=== PATIENT | female | born 1980 | race Caucasian/White ===

== ENCOUNTER 2016-07-22 08:49 | Observation (INO) | payer BC, MEDICAID ==
[2016-07-22 08:56] VITALS: BMI 23.1
[2016-07-22] MEDS ORDERED: Sodium Chloride 0.9% 1,000 ML IV ONE (09:16)
--- NOTE | 2016-07-22 09:19 | C.PDOC ---
History Of Present Illness 36-year-old female, presents to the emergency department accompanied by family, with complaints of right flank/right groin pain since yesterday. Pain is intermittent and sharp. Denies prior Hx of renal stone. LMP was on 07/01. Patient is s/p D&C at nine weeks one month ago, patient states she has been doing well until now. Associated symptoms include nausea and non-bilious/non-bloody vomiting. Denies UTI Sx. All other Hx limited due to clinical condition LIMITED DUE TO CLIN COND HX FROM FAMILY, PT NEW ONSET R FLANK, R GROIN PAIN SINCE YEST. INTERMIT SHARP. DENIES PRIOR HO RENAL STONE. LMP 07/01. S/P D&C @ 9 WKS 1 MO AGO, PS HAS BEEN DOING WELL UNTIL NOW. +NV. DENIES UTI SX ROS LIMITED EXAM MOD DIST NONTOXIC ABD+RLQ /PELVIC TEND SOFT NO R.G +R CVAT REMAINDER NEG Time Seen by Provider: 07/22/16 09:11 Chief Complaint (Nursing): Abdominal Pain History Per: Patient History/Exam Limitations: no limitations Past Medical History Reviewed: Historical Data, Nursing Documentation, Vital Signs Vital Signs: Last Vital Signs Temp 102.7 F H 07/22/16 13:30 Pulse 132 H 07/22/16 13:30 Resp 20 07/22/16 13:30 BP 129/88 07/22/16 13:30 Pulse Ox 100 07/22/16 13:58 - Medical History PMH: Crohn's Disease, HTN (boarderline as per patient) Family History: States: Unknown Family Hx - Social History Hx Tobacco Use: No Hx Alcohol Use: No Hx Substance Use: No - Immunization History Hx Tetanus Toxoid Vaccination: No Hx Influenza Vaccination: No Hx Pneumococcal Vaccination: No Review Of Systems Review Of Systems: ROS cannot be obtained secondary to pt's inabilty to answer questions. Gastrointestinal: Positive for: Nausea, Vomiting, Abdominal Pain Musculoskeletal: Positive for: Back Pain Physical Exam - Physical Exam Appears: Non-toxic, No Acute Distress Skin: Warm, Dry, No Rash Head: Atraumatic, Normacephalic Nose: Normal Oral Mucosa: Moist Lips: Normal Appearing Neck: Normal ROM Cardiovascular: Rhythm Regular Respiratory: Normal Breath Sounds, No Accessory Muscle Use Gastrointestinal/Abdominal: Tenderness (RLQ /PELVIC TEND SOFT), No Guarding, No Rebound Back: CVA Tenderness (RIGHT) Extremity: Normal ROM Neurological/Psych: Oriented x3, Normal Speech ED Course And Treatment - Laboratory Results Result Diagrams: 07/22/16 10:30 07/22/16 10:30 O2 Sat by Pulse Oximetry: 100 ED OBSERVATION Discharge: Yes Date of observation admission: 07/22/16 Time of observation admission: 09:00 - Observation admission statement Patient is being placed in observation because:: FLANK PAIN, ABD PAIN, NV - Goals of Observation Goals of observation are:: NEG ACUTE ABD, SX IMPROVE - Progress Note Progress Note: 07/22/16 11:58 MILD IMPROVE PAIN. VSS. CT REPORT REVIEWED. WILL DO TRANSVAG US. PT DOES NOT WISH ADDL PAIN MEDS @ THIS TIME 07/22/16 13:32 NEW ONSET FEVER, RECUR R FLANK PAIN. WILL LACTATE, CULTURE, ADDL MEDS. PENDING US REPORT 07/22/16 14:51 PS FEELS BETTER. OFFERED ADMISSION DUE TO PERSIST PAIN, NAUSEA. PREFERS DC HOME Disposition Counseled Patient/Family Regarding: Studies Performed, Diagnosis, Need For Followup, Rx Given - Disposition Disposition: HOME/ ROUTINE Disposition Time: 14:54 Condition: IMPROVED - POA Present On Arrival: None - Clinical Impression Clinical Impression: Fever, Flank pain, Abdominal pain - Scribe Statement The provider has reviewed the documentation as recorded by the Gabrielle Acevedo All medical record entries made by the Amandaibfarhad were at my direction and personally dictated by me. I have reviewed the chart and agree that the record accurately reflects my personal performance of the history, physical exam, medical decision making, and the department course for this patient. I have also personally directed, reviewed, and agree with the discharge instructions and disposition.
[2016-07-22] MEDS ORDERED: Morphine 4 MG/ML VIAL ONE ×2 (09:32→13:36)
[2016-07-22 10:35] LABS: BASO % 0.2 % (0.0-2.0); EOS % 0.1 % (0.0-4.0); HEMATOCRIT 37.9 % (34.0-47.0); LYMPH # 0.6 K/uL (1.0-4.3); LYMPH % 4.1 % (20.0-40.0); MEAN CELL VOLUME 83.1 fL (81.0-99.0); MEAN CORPUSCULAR HEMOGLOBIN 27.2 pg (27.0-31.0); MEAN CORPUSCULAR HGB CONC 32.7 g/dL (33.0-37.0); MEAN PLATELET VOLUME 8.9 fL (7.2-11.7); MONO # 0.6 K/uL (0.0-0.8); MONO % 4.3 % (0.0-10.0); PLATELET COUNT 368 K/uL (130-400); RED CELL DISTRIBUTION WIDTH 14.1 % (11.5-14.5)
[2016-07-22 10:44] LABS: CHLORIDE 100 mmol/L (98-107); POTASSIUM 3.5 mmol/L (3.6-5.2); SODIUM 141 mmol/L (132-148)
[2016-07-22 10:46] LABS: ALB/GLOB RATIO 1.3 (1.0-2.1); ALKALINE PHOSPHATASE 59 U/L (38-126); AST/SGOT 27 U/L (14-36); BILIRUBIN,TOTAL 1.5 mg/dL (0.2-1.3); CARBON DIOXIDE 18 mmol/L (22-30); GFR AFRICAN-AMERICAN > 60; TOTAL PROTEIN 8.5 g/dL (6.3-8.3)
[2016-07-22 10:47] LABS: BLOOD UREA NITROGEN 11 mg/dL (7-17); CALCIUM 9.9 mg/dl (8.6-10.4); GLUCOSE,RANDOM 104 mg/dL (65-105)
[2016-07-22 10:53] LABS: RBC URINE 2 /hpf (0-3); URINE BACTERIA RARE (<OCC); URINE BILIRUBIN NEGATIVE (NEGATIVE); URINE BLOOD NEGATIVE (NEGATIVE); URINE COLOR Yellow (YELLOW); URINE GLUCOSE (UA) NORMAL (Normal); URINE HYALINE CAST 0-2 /lpf (0-2); URINE KETONE 1+ mg/dL (NEGATIVE); URINE LEUKOCYTE ESTERASE TRACE Leu/uL (Negative); URINE PROTEIN 1+ mg/dL (NEGATIVE); URINE UROBILINOGEN NORMAL mg/dL (0.2-1.0); WBC URINE 12 /hpf (0-5)
[2016-07-22 10:58] LABS: ALT/SGPT 18 U/L (9-52)
[2016-07-22 11:23] LABS: LARGE PLATELETS PRESENT; NEUTROPHIL 88 % (50-75); TOTAL CELLS COUNTED 100
--- NOTE | 2016-07-22 11:43 | CT ---
PROCEDURE: CT Abdomen and Pelvis without Oral or IV contrast. HISTORY: R FLANK, R GROIN PAIN COMPARISON: None available TECHNIQUE: Contiguous axial images of the abdomen and pelvis. No oral or IV contrast administered. Coronal and Sagittal reformats generated and reviewed. Radiation dose: Total exam DLP = 399.60 mGy-cm. This CT exam was performed using one or more of the following dose reduction techniques: Automated exposure control, adjustment of the mA and/or kV according to patient size, and/or use of iterative reconstruction technique. FINDINGS: There is limited evaluation of the solid organs without the administration of IV contrast. LOWER THORAX: No visible consolidation, pleural effusion, or pneumothorax. LIVER: Unremarkable unenhanced appearance. GALLBLADDER AND BILE DUCTS: Unremarkable unenhanced appearance. PANCREAS: Unremarkable unenhanced appearance. SPLEEN: Unremarkable unenhanced appearance. ADRENALS: Unremarkable unenhanced appearance. KIDNEYS AND URETERS: Bilateral nonobstructing nephrolithiasis. No hydronephrosis. BLADDER: The urinary bladder appears unremarkable. REPRODUCTIVE: Uterus is present. APPENDIX: The appendix is not clearly identified. No secondary signs of acute appendicitis. BOWEL: The stomach is nondistended. Lack of oral contrast limits evaluation for bowel pathology. The bowel loops appear within normal limits of caliber without evidence of intestinal obstruction. Moderate to severe constipation. PERITONEUM: Small pelvic free fluid. No definite free air. LYMPH NODES: No bulky lymphadenopathy identified. VASCULATURE: No aortic aneurysm. BONES: No acute osseous abnormality is detected. OTHER FINDINGS: None. IMPRESSION: Nonobstructing bilateral nephrolithiasis. Moderate to severe constipation. Small pelvic free fluid.
--- NOTE | 2016-07-22 13:21 | US ---
HISTORY: r pelvic pain ro torsion COMPARISON: None available. TECHNIQUE: Real-time transabdominal pelvic ultrasound was performed. In addition a transvaginal pelvic ultrasound was necessary to better depict pelvic anatomy FINDINGS: UTERUS: Measures 9.8 x 5.5 x 6.5 cm. ENDOMETRIUM: Measures 1.3 cm in diameter. CERVIX: Small nabothian cysts. RIGHT OVARY: Measures 3.7 x 2.2 x 3.4 cm. Blood flow is demonstrated to the right ovary. 1.3 x 1.1 x 1.3 cm complex probable cyst. LEFT OVARY: Measures 4.1 x 1.7 x 3.2 cm. Blood flow is demonstrated. FREE FLUID: No significant free fluid noted. OTHER FINDINGS: None. IMPRESSION: No evidence of intrauterine gestational sac. If indeed the patient is based on serum beta HCG values, the sonographic findings represent either: Very early IUP; embryonic demise; ectopic gestation. Follow-up with serial quantitative serum beta HCG measurements and post OBGYN follow-up is mandatory, since ectopic gestation cannot be excluded based only on sonographic findings. Complex appearing 1.3 cm right ovarian cyst. Recommend 6 week ultrasound follow-up to assess for complete resolution.
[2016-07-22] MEDS ORDERED: Sodium Chloride 0.9% 1,000 ML ONE (13:36)
--- NOTE | 2016-07-22 14:03 | RAD ---
HISTORY: FEVER R ABD PAIN COMPARISON: None available TECHNIQUE: Chest, one view. FINDINGS: LUNGS: No focal consolidation. Please note that chest x-ray has limited sensitivity for the detection of pulmonary masses. PLEURA: No significant pleural effusion identified. No definite pneumothorax . CARDIOVASCULAR: The cardiomediastinal silhouette appears within normal limits of size. OSSEOUS STRUCTURES: No acute osseous abnormality identified. VISUALIZED UPPER ABDOMEN: Unremarkable. OTHER FINDINGS: None. IMPRESSION: No focal consolidation, significant pleural effusion, or definite pneumothorax identified.
[2016-07-22 14:23] LABS: VENOUS BLOOD GAS PCO2 34 mmHg (40-60)
[2016-07-22] MEDS ORDERED: cefTRIAXone IV 1 gm in Dextros 50 ML IV STA (14:51)
[2016-07-22] MEDS ORDERED: cefTRIAXone IV 1 gm in Dextros 50 ML IVPB ONE (14:55)
[2016-07-22 15:28] VITALS: BP 98/59; PULSE 102; RESP 18; TEMP 100.4; O2SAT 98
== END 2016-07-22 14:54 | disposition home or self-care (01) ==
LOC: C.ER 08:49 → C.9OBSV 09:00
PROVIDERS: ADMIT Emergency Medicine; ATTEND Emergency Medicine
DX: R11.2 Nausea with vomiting, unspecified (principal); K50.90 Crohn's disease, unspecified, without complications; I10 Essential (primary) hypertension
CPT/HCPCS: 36415; 71010; 74176; 76830; 76856; 80053; 81001; 82803; 83690; 84703; 85025; 87040; 87086; 96360; 96374; 99285; G0378; J0696; J1885; J2270; J2405; J7040

== ENCOUNTER 2016-07-24 14:25 | Inpatient (IN) | payer BC, MEDICAID ==
[2016-07-24 14:25] VITALS: BMI 23.1
[2016-07-24] MEDS ORDERED: cefTRIAXone IV 1 gm in Dextros 50 ML IV ONE (15:23)
[2016-07-24] MEDS ORDERED: cefTRIAXone IV 1 gm in Dextros 50 ML IVPB ONE (15:28)
[2016-07-24] MEDS ORDERED: Sodium Chloride 0.9% 1,000 ML IV ONE (15:50)
--- NOTE | 2016-07-24 15:59 | C.PDOC ---
History Of Present Illness 36 y/o female presents to the ED for evaluation of right sided flank pain that radiates to her right abdominal x 4 days. Patient states she was evaluated in ED on 07/22 and was diagnosed with kidney stones. Patient was also given Rx for Levaquin because she had a mild UTI at the time. Since her visit, patient states she has been experiencing fever, nausea, and persistent pain. Patient was seen by Dr. Marilia Rivera, who referred her to the ED for further evaluation. Patient denies vomiting, cough, sore throat, runny nose, vaginal bleeding/discharge. Time Seen by Provider: 07/24/16 15:11 Chief Complaint (Nursing): Female Genitourinary History Per: Patient History/Exam Limitations: no limitations Onset/Duration Of Symptoms: Days Current Symptoms Are (Timing): Still Present Severity: Moderate Quality Of Discomfort: "Pain" Associated Symptoms: denies: Vomiting, Other (vaginal discharge/bleeding ) Abnormal Vaginal Bleeding: No Past Medical History Reviewed: Historical Data, Nursing Documentation, Vital Signs Vital Signs: Last Vital Signs Temp 98.1 F 07/26/16 07:00 Pulse 72 07/26/16 07:00 Resp 18 07/26/16 07:00 BP 128/81 07/26/16 07:00 Pulse Ox 99 07/26/16 14:48 - Medical History PMH: Crohn's Disease, HTN Surgical History: No Surg Hx Family History: States: No Known Family Hx - Social History Hx Tobacco Use: No Hx Alcohol Use: No Hx Substance Use: No - Immunization History Hx Tetanus Toxoid Vaccination: No Hx Influenza Vaccination: No Hx Pneumococcal Vaccination: No Review Of Systems Except As Marked, All Systems Reviewed And Found Negative. Constitutional: Positive for: Fever, Chills Cardiovascular: Negative for: Chest Pain, Palpitations Respiratory: Negative for: Cough, Shortness of Breath Gastrointestinal: Positive for: Nausea, Abdominal Pain (right ). Negative for: Vomiting, Diarrhea Genitourinary: Negative for: Vaginal Discharge, Vaginal Bleeding Musculoskeletal: Positive for: Other (+right flank pain ) Physical Exam - Physical Exam Appears: Well, Non-toxic, Other (uncomfortable ) Skin: Normal Color, Warm, Dry, Other (warm to touch ) Head: Normacephalic Eye(s): bilateral: Normal Inspection Oral Mucosa: Moist Neck: Supple Cardiovascular: Rhythm Regular (tachycardic ), No Murmur Respiratory: Normal Breath Sounds, No Rales, No Rhonchi, No Wheezing Gastrointestinal/Abdominal: Bowel Sounds, Soft, Tenderness (TTP at right periumbilical region and right lower quadrant), No Distention, No Guarding, No Rebound Back: CVA Tenderness (right-sided ), No Vertebral Tenderness, No Paraspinal Tenderness Extremity: Normal ROM Neurological/Psych: Oriented x3 Gait: Steady ED Course And Treatment - Laboratory Results Result Diagrams: 07/26/16 07:26 07/26/16 07:26 O2 Sat by Pulse Oximetry: 99 (on RA) Pulse Ox Interpretation: Normal - Other Rad transvaginal US 07/12/16 X-Ray: Viewed By Me, Read By Radiologist Interpretation: Accession No. : [id number]. Patient Name / ID : MIL TERESA / [id number]. Exam Date : 07/22/2016 12:40:01 ( Approved ). Study Comment : Sex / Age : F / 36Y. Creator : Yomaira Claudio MD. Dictator : Yomaira Claudio MD. Electromagnet Crane Operator : Electrical Assistant : Yomaira Claudio MD. Approver2 : Report Date : 07/22/2016 13:20:25. My Comment : . HISTORY: r pelvic pain ro torsion. COMPARISON: None available. TECHNIQUE: Real-time transabdominal pelvic ultrasound was performed. In addition a transvaginal pelvic ultrasound was necessary to better depict pelvic anatomy. FINDINGS: UTERUS: Measures 9.8 x 5.5 x 6.5 cm. ENDOMETRIUM: Measures 1.3 cm in diameter. CERVIX: Small nabothian cysts. RIGHT OVARY: Measures 3.7 x 2.2 x 3.4 cm. Blood flow is demonstrated to the right ovary. 1.3 x 1.1 x 1.3 cm complex probable cyst. LEFT OVARY: Measures 4.1 x 1.7 x 3.2 cm. Blood flow is demonstrated. FREE FLUID: No significant free fluid noted. OTHER FINDINGS: None. IMPRESSION: No evidence of intrauterine gestational sac. If indeed the patient is based on serum beta HCG values, the sonographic findings represent either: Very early IUP; embryonic demise; ectopic gestation. Follow-up with serial quantitative serum beta HCG measurements and post OBGYN follow-up is mandatory, since ectopic gestation cannot be excluded based only on sonographic findings. Complex appearing 1.3 cm right ovarian cyst. Recommend 6 week ultrasound follow-up to assess for complete resolution. - CT Scan/US CT ABD/PELVIS 07/22/16 Other Rad Studies (CT/US): Read By Radiologist, Radiology Report Reviewed CT/US Interpretation: Accession No. : [id number]. Patient Name / ID : MIL TERESA / [id number]. Exam Date : 07/22/2016 11:13:45 ( Approved ). Study Comment : Sex / Age : F / 36Y. Creator : Yomaira Claudio MD. Dictator : Yomaira Claudio MD. Electromagnet Crane Operator : Electrical Assistant : Yomaira Claudio MD. Approver2 : Report Date : 07/22/2016 11:42:07. My Comment : . PROCEDURE: CT Abdomen and Pelvis without Oral or IV contrast. HISTORY: R FLANK, R GROIN PAIN. COMPARISON: None available. TECHNIQUE: Contiguous axial images of the abdomen and pelvis. No oral or IV contrast administered. Coronal and Sagittal reformats generated and reviewed. Radiation dose: Total exam DLP = 399.60 mGy-cm. This CT exam was performed using one or more of the following dose reduction techniques: Automated exposure control, adjustment of the mA and/or kV according to patient size, and/or use of iterative reconstruction technique. FINDINGS: There is limited evaluation of the solid organs without the administration of IV contrast. LOWER THORAX: No visible consolidation, pleural effusion, or pneumothorax. LIVER: Unremarkable unenhanced appearance. GALLBLADDER AND BILE DUCTS: Unremarkable unenhanced appearance. PANCREAS: Unremarkable unenhanced appearance. SPLEEN: Unremarkable unenhanced appearance. ADRENALS: Unremarkable unenhanced appearance. KIDNEYS AND URETERS: Bilateral nonobstructing nephrolithiasis. No hydronephrosis. BLADDER: The urinary bladder appears unremarkable. REPRODUCTIVE: Uterus is present. APPENDIX: The appendix is not clearly identified. No secondary signs of acute appendicitis. BOWEL: The stomach is nondistended. Lack of oral contrast limits evaluation for bowel pathology. The bowel loops appear within normal limits of caliber without evidence of intestinal obstruction. Moderate to severe constipation. PERITONEUM: Small pelvic free fluid. No definite free air. LYMPH NODES: No bulky lymphadenopathy identified. VASCULATURE: No aortic aneurysm. BONES: No acute osseous abnormality is detected. OTHER FINDINGS: None. IMPRESSION: Nonobstructing bilateral nephrolithiasis. Moderate to severe constipation. Small pelvic free fluid. Progress Note: Blood work, UA, Ucx ordered. Patient given IV NS bolus, IV toradol and IV Rocephin. Prior CT and US reviewed (from 07/22) & added to chart. - Physician Consult Information Physician Contacted: Miko Baeza Outcome Of Conversation: Discussed patient with Dr. Eaton (covers for Caitlyn), agrees with admission for kidney stones, pyelonephritis. Dr. Kaylen Rivera is urology hospice consultant. Disposition - Disposition Disposition: HOME/ ROUTINE Disposition Time: 17:28 Condition: STABLE - Clinical Impression Clinical Impression: Acute urinary tract infection, Pyelonephritis, Urolithiasis - Scribe Statement The provider has reviewed the documentation as recorded by the Scribe (Gwen Forde) Provider Attestation: All medical record entries made by the Scribe were at my direction and personally dictated by me. I have reviewed the chart and agree that the record accurately reflects my personal performance of the history, physical exam, medical decision making, and the department course for this patient. I have also personally directed, reviewed, and agree with the discharge instructions and disposition. Decision To Admit - Pt Status Changed To: Hospital Disposition Of: Inpatient - Admit Certification Admit to Inpatient:: After my assessment, the patient will require hospitalization for at least two midnights. This is because of the severity of symptoms shown, intensity of services needed, and/or the medical risk in this patient being treated as an outpatient. - InPatient: Physician Admission Certification: I certify that this patient requires 2 or more midnights of care for the following reason:: see notes - . Bed Request Type: Regular Admitting Physician: Miko Baeza Patient Diagnosis: Acute urinary tract infection, Pyelonephritis, Urolithiasis
[2016-07-24 16:03] LABS: VENOUS BLOOD GAS BASE EXCESS 1.3 mmol/L (0.0-2.0); VENOUS BLOOD GAS PCO2 36 mmHg (40-60); VENOUS BLOOD PH 7.45 (7.32-7.43)
[2016-07-24 16:14] LABS: BASO % 0.3 % (0.0-2.0); EOS % 0.7 % (0.0-4.0); HEMATOCRIT 32.1 % (34.0-47.0); LYMPH # 1.1 K/uL (1.0-4.3); LYMPH % 15.9 % (20.0-40.0); MEAN CELL VOLUME 82.5 fL (81.0-99.0); MEAN CORPUSCULAR HGB CONC 32.7 g/dL (33.0-37.0); MEAN PLATELET VOLUME 8.5 fL (7.2-11.7); MONO # 0.8 K/uL (0.0-0.8); MONO % 11.2 % (0.0-10.0); RED CELL DISTRIBUTION WIDTH 14.1 % (11.5-14.5); WHITE BLOOD COUNT 7.1 K/uL (4.8-10.8)
[2016-07-24 16:21] LABS: CHLORIDE 101 mmol/L (98-107); POTASSIUM 3.2 mmol/L (3.6-5.2); SODIUM 138 mmol/L (132-148)
[2016-07-24 16:23] LABS: GFR AFRICAN-AMERICAN > 60
[2016-07-24 16:24] LABS: ALB/GLOB RATIO 1.1 (1.0-2.1); ALKALINE PHOSPHATASE 54 U/L (38-126); ALT/SGPT 22 U/L (9-52); AST/SGOT 31 U/L (14-36); BILIRUBIN,TOTAL 0.8 mg/dL (0.2-1.3); BLOOD UREA NITROGEN 8 mg/dL (7-17); CARBON DIOXIDE 24 mmol/L (22-30); GLUCOSE,RANDOM 87 mg/dL (65-105); TOTAL PROTEIN 7.6 g/dL (6.3-8.3)
[2016-07-24 16:25] LABS: CALCIUM 8.5 mg/dl (8.6-10.4)
[2016-07-24 16:30] LABS: RBC URINE 4 /hpf (0-3); URINE BACTERIA RARE (<OCC); URINE BILIRUBIN NEGATIVE (NEGATIVE); URINE BLOOD NEGATIVE (NEGATIVE); URINE COLOR Yellow (YELLOW); URINE GLUCOSE (UA) NORMAL (Normal); URINE KETONE NEGATIVE (NEGATIVE); URINE LEUKOCYTE ESTERASE NEG Leu/uL (Negative); URINE PROTEIN NEGATIVE (NEGATIVE); URINE UROBILINOGEN NORMAL mg/dL (0.2-1.0); WBC URINE 11 /hpf (0-5)
[2016-07-24] MEDS ORDERED: Potassium Chloride 20 mEq ER Tab PO STA (16:34)
[2016-07-24] MEDS ORDERED: Potassium Chloride 20 mEq ER Tab PO ONE (17:07)
[2016-07-24] MEDS ORDERED: Sodium Chloride 0.9% 1,000 ML ONE (17:41)
[2016-07-24] MEDS: Piperacill/Tazo 3.375gm in Dex 3.375 GM/50 ML BAG IVPB SCH (21:49)
[2016-07-24] MEDS: Oxycodone/Acetaminophen 5/325 mg Tab PO PRN (21:58)
--- NOTE | 2016-07-25 01:10 | CP.PCM.CON ---
History of Present Illness - History of Present Illness History of Present Illness: INFECTIOUS DISEASE CONSULTATION IVIS PEACOCK MD, FACP 3T 369-A 07/24/2016 8-9PM CHART REVIEWED PT EXAMINED CASE DISCUSSED PT SEEN AND INITIAL EMPIRIC ANTIMICROBIAL TREATMENT INITIATED SECONDARY TO HER RIGHT FLANK PAIN, STONES AND TEMPERATURE 102 PLUS! The patient, a 36 y/o female, presents to the ED for evaluation of right flank pain that radiates to her right abdominal region which began around 4-5 days ago. Patient states she was evaluated in ED on 07/22 and was diagnosed with kidney stones. Patient was also given Rx for Levaquin because she had a mild UTI at the time. Since her visit, patient states she has been experiencing fever, nausea, and persistent pain. Patient was seen by Dr. Marilia Rivera, who referred her to the ED for further evaluation. Patient denies vomiting, cough, sore throat, runny nose, vaginal bleeding/discharge. Time Seen by Provider: 07/24/16 Chief Complaint (Nursing): RIGHT FLANK PAIN AND TEMPERATURE OF OVER 102 DESPITE PO LEVAQUIN! History Per: Patient History/Exam Limitations: no limitations Onset/Duration Of Symptoms: Days Current Symptoms Are (Timing): Still Present Quality Of Discomfort: "Pain" Associated Symptoms: denies: Vomiting, Other (vaginal discharge/bleeding ) Additional History Per: Patient Abnormal Vaginal Bleeding: No Past Medical History Reviewed: Historical Data, Nursing Documentation, Vital Signs Vital Signs: Last Vital Signs Temp 98.7 F 07/24/16 17:19 Pulse 79 07/24/16 17:19 Resp 18 07/24/16 17:19 BP 98/64 L 07/24/16 17:19 Pulse Ox 98 07/24/16 17:19 - Medical History PMH: Crohn's Disease, HTN ANXIETY Surgical History: No Surg Hx Family History: States: Unknown Family Hx - Social History Hx Tobacco Use: No Hx Alcohol Use: No Hx Substance Use: No - Immunization History Hx Tetanus Toxoid Vaccination: No Hx Influenza Vaccination: No Hx Pneumococcal Vaccination: No Review Of Systems Except As Marked, All Systems Reviewed And Found Negative. Gastrointestinal: Positive for: Nausea, Abdominal Pain (right ) Musculoskeletal: Positive for: Other (+right flank pain ) Physical Exam - Physical Exam Appears: Non-toxic, No Acute Distress, Other (uncomfortable ) Skin: Normal Color, Warm, Dry, Other (warm to touch ) Head: Atraumatic, Normacephalic Eye(s): bilateral: Normal Inspection Oral Mucosa: Moist Neck: Supple Chest: Symmetrical, No Deformity, No Tenderness Cardiovascular: Rhythm Regular, No Murmur, Other (+tachycardia ) Respiratory: Normal Breath Sounds, No Rales, No Rhonchi, No Wheezing Gastrointestinal/Abdominal: Tenderness (to right periumbilical region and right lower quadrant on palpation ), No Guarding, No Rebound Back: CVA Tenderness (right-sided ), No Vertebral Tenderness, No Paraspinal Tenderness Extremity: Normal ROM, Capillary Refill (less than 2 seconds ) Neurological/Psych: Oriented x3, Normal Speech, Normal Cognition Gait: Steady ED Course And Treatment - Laboratory Results Result Diagrams: 07/24/16 15:58 07/24/16 15:58 O2 Sat by Pulse Oximetry: 99 (on RA) Pulse Ox Interpretation: Normal - Other Rad transvaginal US 07/12/16 X-Ray: Viewed By Me, Read By Radiologist Interpretation: Accession No. : [id number]. Patient Name / ID : MIL TERESA / [id number]. Exam Date : 07/22/2016 12:40:01 ( Approved ). Study Comment : Sex / Age : F / 36Y. Creator : Yomaira Claudio MD. Dictator : Yomaira Claudio MD. Project Structural Engineer : Solar Sales Rep : Yomaira Claudio MD. Approver2 : Report Date : 07/22/2016 13:20:25. My Comment : . HISTORY: r pelvic pain ro torsion. COMPARISON: None available. TECHNIQUE: Real-time transabdominal pelvic ultrasound was performed. In addition a transvaginal pelvic ultrasound was necessary to better depict pelvic anatomy. FINDINGS: UTERUS: Measures 9.8 x 5.5 x 6.5 cm. ENDOMETRIUM: Measures 1.3 cm in diameter. CERVIX: Small nabothian cysts. RIGHT OVARY: Measures 3.7 x 2.2 x 3.4 cm. Blood flow is demonstrated to the right ovary. 1.3 x 1.1 x 1.3 cm complex probable cyst. LEFT OVARY: Measures 4.1 x 1.7 x 3.2 cm. Blood flow is demonstrated. FREE FLUID: No significant free fluid noted. OTHER FINDINGS: None. IMPRESSION: No evidence of intrauterine gestational sac. If indeed the patient is based on serum beta HCG values, the sonographic findings represent either: Very early IUP; embryonic demise; ectopic gestation. Follow-up with serial quantitative serum beta HCG measurements and post OBGYN follow-up is mandatory, since ectopic gestation cannot be excluded based only on sonographic findings. Complex appearing 1.3 cm right ovarian cyst. Recommend 6 week ultrasound follow-up to assess for complete resolution. - CT Scan/US CT ABD/PELVIS 07/22/16 Other Rad Studies (CT/US): Read By Radiologist, Radiology Report Reviewed CT/US Interpretation: Accession No. : [id number]. Patient Name / ID : MIL TERESA / [id number]. Exam Date : 07/22/2016 11:13:45 ( Approved ). Study Comment : Sex / Age : F / 36Y. Creator : Yomaira Claudio MD. Dictator : Yomaira Claudio MD. Project Structural Engineer : Solar Sales Rep : Yomaira Claudio MD. Approver2 : Report Date : 07/22/2016 11:42:07. My Comment : . PROCEDURE: CT Abdomen and Pelvis without Oral or IV contrast. HISTORY: R FLANK, R GROIN PAIN. COMPARISON: None available. TECHNIQUE: Contiguous axial images of the abdomen and pelvis. No oral or IV contrast administered. Coronal and Sagittal reformats generated and reviewed. Radiation dose: Total exam DLP = 399.60 mGy-cm. This CT exam was performed using one or more of the following dose reduction techniques: Automated exposure control, adjustment of the mA and/or kV according to patient size, and/or use of iterative reconstruction technique. FINDINGS: There is limited evaluation of the solid organs without the administration of IV contrast. LOWER THORAX: No visible consolidation, pleural effusion, or pneumothorax. LIVER: Unremarkable unenhanced appearance. GALLBLADDER AND BILE DUCTS: Unremarkable unenhanced appearance. PANCREAS: Unremarkable unenhanced appearance. SPLEEN: Unremarkable unenhanced appearance. ADRENALS: Unremarkable unenhanced appearance. KIDNEYS AND URETERS: Bilateral nonobstructing nephrolithiasis. No hydronephrosis. BLADDER: The urinary bladder appears unremarkable. REPRODUCTIVE: Uterus is present. APPENDIX: The appendix is not clearly identified. No secondary signs of acute appendicitis. BOWEL: The stomach is nondistended. Lack of oral contrast limits evaluation for bowel pathology. The bowel loops appear within normal limits of caliber without evidence of intestinal obstruction. Moderate to severe constipation. PERITONEUM: Small pelvic free fluid. No definite free air. LYMPH NODES: No bulky lymphadenopathy identified. VASCULATURE: No aortic aneurysm. BONES: No acute osseous abnormality is detected. OTHER FINDINGS: None. IMPRESSION: Nonobstructing bilateral nephrolithiasis. Moderate to severe constipation. Small pelvic free fluid. Progress Note: Blood work, UA, Ucx ordered. Patient given IV Ns bolus, IV toradol and IV rocpehin. 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 START ZOSYN IV 3.375 GM Q 6 HOURS REPLACE HER POTASSIUM. CHECK HER BLOOD CULTURES AND URINE C/S, OF NOTE THE PREVIOUS PO AND IV AB MAY INHIBIT ANY GROWTH IN C/S. PLEASE NOTIFY DR MARILIA RIVERA WHO DIRECTED THE PATIENT ACCORDINGLY TO THE [facility]. IVIS PEACOCK MD, FACP CALL ME FOR ANY SIGNIFICANT MEDICAL/INFECTIOUS DISEASE ISSUES. Past Patient History - Infectious Disease Hx of Infectious Diseases: None - Past Medical History & Family History Past Medical History?: Yes - Past Social History Smoking Status: Never Smoked - CARDIAC Hx Hypertension: Yes - MUSCULOSKELETAL/RHEUMATOLOGICAL Hx Falls: No - GASTROINTESTINAL Hx Crohn's Disease: Yes - PSYCHIATRIC Hx Depression: Yes Hx Substance Use: No - SURGICAL HISTORY Other/Comment: colonoscopy. laproscopic endometrial cyst removal - ANESTHESIA Hx Anesthesia: Yes Hx Anesthesia Reactions: No Meds Allergies/Adverse Reactions: Allergies Allergy/AdvReac Type Severity Reaction Status Date / Time seafood Allergy Intermediate RASH Uncoded 07/24/16 14:40 - Medications Medications: Current Medications Acetaminophen (Tylenol 325mg Tab) 650 mg PO Q6 PRN PRN Reason: Temperature Heparin Sodium (Porcine) (Heparin) 5,000 units SC Q8 [facility] Last Admin: 07/24/16 21:52 Dose: 5,000 units Piperacillin Sod/Tazobactam Sod (Zosyn 3.375 Gm Iv Premix) 3.375 gm in 50 mls @ 100 mls/hr IVPB Q6H [facility] Last Admin: 07/24/16 21:49 Dose: 100 mls/hr Ondansetron HCl (Zofran Inj) 4 mg IVP Q6 PRN PRN Reason: Nausea/Vomiting Oxycodone/Acetaminophen (Percocet 5/325 Mg Tab) 1 tab PO QID PRN PRN Reason: Pain Stop: 07/27/16 20:47 Last Admin: 07/24/16 21:58 Dose: 1 tab Pneumococcal Polyvalent Vaccine (Pneumovax 23 Vaccine) 0.5 ml IM .ONCE ONE Stop: 07/26/16 10:01 Results - Vital Signs Recent Vital Signs: Last Vital Signs Temp 98.3 F 07/24/16 18:39 Pulse 80 07/24/16 18:39 Resp 20 07/24/16 18:39 BP 104/72 07/24/16 18:39 Pulse Ox 100 07/24/16 18:39 - Labs Result Diagrams: 07/25/16 06:56 07/25/16 06:56
[2016-07-25] MEDS: Piperacill/Tazo 3.375gm in Dex 3.375 GM/50 ML BAG IVPB SCH ×4 (03:00→20:46)
[2016-07-25] MEDS: Oxycodone/Acetaminophen 5/325 mg Tab PO PRN (06:53)
[2016-07-25 07:03] LABS: BASO % 0.6 % (0.0-2.0); EOS # 0.1 K/uL (0.0-0.7); EOS % 1.9 % (0.0-4.0); HEMATOCRIT 28.7 % (34.0-47.0); LYMPH # 1.6 K/uL (1.0-4.3); LYMPH % 28.8 % (20.0-40.0); MEAN CELL VOLUME 82.1 fL (81.0-99.0); MEAN CORPUSCULAR HEMOGLOBIN 27.5 pg (27.0-31.0); MEAN CORPUSCULAR HGB CONC 33.4 g/dL (33.0-37.0); MEAN PLATELET VOLUME 8.2 fL (7.2-11.7); MONO # 0.6 K/uL (0.0-0.8); MONO % 10.8 % (0.0-10.0); RED CELL DISTRIBUTION WIDTH 13.8 % (11.5-14.5); WHITE BLOOD COUNT 5.5 K/uL (4.8-10.8)
[2016-07-25 07:17] LABS: CHLORIDE 106 mmol/L (98-107); SODIUM 139 mmol/L (132-148)
[2016-07-25 07:18] LABS: POTASSIUM 3.8 mmol/L (3.6-5.2)
[2016-07-25 07:19] LABS: CHLORIDE 105 mmol/L (98-107)
[2016-07-25 07:20] LABS: BLOOD UREA NITROGEN 7 mg/dL (7-17); CARBON DIOXIDE 21 mmol/L (22-30); GFR AFRICAN-AMERICAN > 60; POTASSIUM 3.7 mmol/L (3.6-5.2); SODIUM 139 mmol/L (132-148)
[2016-07-25 07:21] LABS: CALCIUM 8.1 mg/dl (8.6-10.4); GLUCOSE,RANDOM 86 mg/dL (65-105)
[2016-07-25 07:22] LABS: AST/SGOT 28 U/L (14-36); BILIRUBIN,TOTAL 0.6 mg/dL (0.2-1.3); BLOOD UREA NITROGEN 6 mg/dL (7-17); CARBON DIOXIDE 21 mmol/L (22-30); GFR AFRICAN-AMERICAN > 60; TOTAL PROTEIN 6.8 g/dL (6.3-8.3)
[2016-07-25 07:23] LABS: ALKALINE PHOSPHATASE 50 U/L (38-126); ALT/SGPT 25 U/L (9-52); CALCIUM 7.5 mg/dl (8.6-10.4); GLUCOSE,RANDOM 87 mg/dL (65-105)
--- NOTE | 2016-07-25 09:20 | RAD ---
HISTORY: flank pain/kidney stone COMPARISON: CT abdomen and pelvis without p.o. or IV contrast 07/22/2016 FINDINGS: BOWEL: Transverse colon, right colon and rectosigmoid colon stool retention is present. Gas within large and small bowel loops in the left upper outer quadrant are noted. No bowel obstruction suggested BONES: Normal. OTHER FINDINGS: An approximately 4 mm calcification in the right upper quadrant is present and consistent with the largest calculus, nonobstructing, on the CT in the right renal mid to upper pole. Much smaller 1 to 2 mm calcifications are noted in the left upper outer quadrant probably relating to the much more subtle nonobstructing left renal calcifications present on that same CT. . The bilateral hemipelvic calcifications are phleboliths . No gross ureteral cord calcifications are suggested IMPRESSION: Bilateral renal calcifications as detailed above Stool retention
[2016-07-25] MEDS: Potassium Chloride 20 mEq ER Tab PO SCH (09:33)
--- NOTE | 2016-07-25 12:01 | CP.PCM.CON ---
Past Patient History - Infectious Disease Hx of Infectious Diseases: None - Past Medical History & Family History Past Medical History?: Yes - Past Social History Smoking Status: Never Smoked - CARDIAC Hx Hypertension: Yes - MUSCULOSKELETAL/RHEUMATOLOGICAL Hx Falls: No - GASTROINTESTINAL Hx Crohn's Disease: Yes - PSYCHIATRIC Hx Depression: Yes Hx Substance Use: No - SURGICAL HISTORY Other/Comment: colonoscopy. laproscopic endometrial cyst removal - ANESTHESIA Hx Anesthesia: Yes Hx Anesthesia Reactions: No Meds Allergies/Adverse Reactions: Allergies Allergy/AdvReac Type Severity Reaction Status Date / Time seafood Allergy Intermediate RASH Uncoded 07/24/16 14:40 - Medications Medications: Current Medications Acetaminophen (Tylenol 325mg Tab) 650 mg PO Q6 PRN PRN Reason: Temperature Heparin Sodium (Porcine) (Heparin) 5,000 units SC Q8 [facility] Last Admin: 07/25/16 05:34 Dose: 5,000 units Piperacillin Sod/Tazobactam Sod (Zosyn 3.375 Gm Iv Premix) 3.375 gm in 50 mls @ 100 mls/hr IVPB Q6H [facility] Last Admin: 07/25/16 08:00 Dose: 100 mls/hr Ondansetron HCl (Zofran Inj) 4 mg IVP Q6 PRN PRN Reason: Nausea/Vomiting Oxycodone/Acetaminophen (Percocet 5/325 Mg Tab) 1 tab PO Q4H PRN PRN Reason: Pain, severe (8-10) Stop: 07/28/16 11:51 Pneumococcal Polyvalent Vaccine (Pneumovax 23 Vaccine) 0.5 ml IM .ONCE ONE Stop: 07/26/16 10:01 Potassium Chloride (K-Dur 20 Meq Er Tab) 20 meq PO DAILY [facility] Last Admin: 07/25/16 09:33 Dose: 20 meq Results - Vital Signs Recent Vital Signs: Last Vital Signs Temp 99.2 F 07/25/16 08:00 Pulse 81 07/25/16 08:00 Resp 20 07/25/16 08:00 BP 133/83 07/25/16 08:00 Pulse Ox 97 07/25/16 08:00 - Labs Result Diagrams: 07/25/16 06:56 07/25/16 06:56 Labs: Laboratory Results - last 24 hr 07/25/16 07/25/16 07/25/16 06:56 06:56 06:56 WBC 5.5 RBC 3.50 L Hgb 9.6 L Hct 28.7 L MCV 82.1 MCH 27.5 MCHC 33.4 RDW 13.8 Plt Count 284 MPV 8.2 Neut % (Auto) 57.9 Lymph % (Auto) 28.8 [place] % (Auto) 10.8 H Eos % (Auto) 1.9 Baso % (Auto) 0.6 Neut # 3.2 Lymph # 1.6 [place] # 0.6 Eos # 0.1 Baso # 0.0 Sodium 139 139 Potassium 3.8 3.7 Chloride 106 105 Carbon Dioxide 21 L 21 L Anion Gap 16 17 BUN 7 6 L Creatinine 0.6 L 0.6 L Est GFR ( Amer) > 60 > 60 Est GFR (Non-Af Amer) > 60 > 60 Random Glucose 86 87 Calcium 8.1 L 7.5 L Total Bilirubin 0.6 AST 28 ALT 25 Alkaline Phosphatase 50 Total Protein 6.8 Albumin 3.3 L Globulin 3.4 Albumin/Globulin Ratio 1.0 Assessment & Plan - Assessment and Plan (Free Text) Assessment: IMP: UTI UROLITHIASIS - Date & Time Date: 07/25/16 Time: 12:01
--- NOTE | 2016-07-25 17:15 | US ---
PROCEDURE: Ultrasound of the Kidneys HISTORY: flank pain/ kidney stone COMPARISON: Noncontrast CT abdomen and pelvis 06/21/2016. TECHNIQUE: Sonogram of the kidneys. FINDINGS: RIGHT KIDNEY: Measures: 11.3 x 4.8 x 5.5 cm. Normal in size, contour and echogenicity. 1.4 x 1.1 x 1.2 cm right upper renal pole cortical hypo echoic area right renal cyst with minimal debris is believe most likely. This is possibly faintly seen on the CT exam coronal series 601, image 72 Multiple renal calculi present with multiple medullary hyper echogenicities. Mild and diffuse cortical thinning suggested. No hydronephrosis LEFT KIDNEY: Measures: 12.3 x 5.9 by 6.0 cm. Multiple renal calculi present with multiple medullary hyper echogenicities. Mild and diffuse cortical thinning suggested. No hydronephrosis OTHER FINDINGS: No aortic aneurysm noted IMPRESSION: Bilateral nonobstructing renal calculi with medullary hyper echogenicities -a medullary sponge kidney with nephrolithiasis is suspect 1.4 cm right upper renal pole nearly anechoic focus - a minimally complicated cyst is believe most likely.
[2016-07-25] MEDS ORDERED: POLYETHYLENE GLYCOL 3350 17 GM/Dose PACKET PO PRN (19:27)
--- NOTE | 2016-07-25 19:27 | CP.PCM.HP ---
History of Present Illness - History of Present Illness History of Present Illness: UTI WITH FEVER AND H/O STONES FAILED OUTPT ABX ADMITTED VIA ER FOR IV RX ID & CONSULTS NOTED Present on Admission - Present on Admission Any Indicators Present on Admission: Yes Review of Systems - Genitourinary Genitourinary: Dysuria, Flank Pain, Urinary Frequency Past Patient History - Infectious Disease Hx of Infectious Diseases: None - Past Medical History & Family History Past Medical History?: Yes - Past Social History Smoking Status: Never Smoked - CARDIAC Hx Hypertension: Yes - MUSCULOSKELETAL/RHEUMATOLOGICAL Hx Falls: No - GASTROINTESTINAL Hx Crohn's Disease: Yes Hx Irritable Bowel: Yes - PSYCHIATRIC Hx Depression: Yes Hx Substance Use: No - SURGICAL HISTORY Other/Comment: colonoscopy. laproscopic endometrial cyst removal - ANESTHESIA Hx Anesthesia: Yes Hx Anesthesia Reactions: No Meds Allergies/Adverse Reactions: Allergies Allergy/AdvReac Type Severity Reaction Status Date / Time seafood Allergy Intermediate RASH Uncoded 07/24/16 14:40 Physical Exam - Constitutional Appears: No Acute Distress - Head Exam Head Exam: ATRAUMATIC, NORMOCEPHALIC - Eye Exam Eye Exam: Normal appearance - ENT Exam ENT Exam: Mucous Membranes Moist - Respiratory Exam Respiratory Exam: NORMAL BREATHING PATTERN - Cardiovascular Exam Cardiovascular Exam: +S1, +S2 - GI/Abdominal Exam GI & Abdominal Exam: Diminished Bowel Sounds - Rectal Exam Rectal Exam: Deferred - Neurological Exam Neurological exam: Alert, Normal Gait, Oriented x3 - Psychiatric Exam Psychiatric exam: Normal Affect, Normal Mood - Skin Skin Exam: Intact Results - Vital Signs Recent Vital Signs: Last Vital Signs Temp 100.1 F H 07/25/16 17:26 Pulse 88 07/25/16 16:00 Resp 20 07/25/16 16:00 BP 143/91 H 07/25/16 16:00 Pulse Ox 99 07/25/16 16:00 - Labs Result Diagrams: 07/25/16 06:56 07/25/16 06:56 Labs: Laboratory Results - last 24 hr 07/25/16 07/25/16 07/25/16 06:56 06:56 06:56 WBC 5.5 RBC 3.50 L Hgb 9.6 L Hct 28.7 L MCV 82.1 MCH 27.5 MCHC 33.4 RDW 13.8 Plt Count 284 MPV 8.2 Neut % (Auto) 57.9 Lymph % (Auto) 28.8 [place] % (Auto) 10.8 H Eos % (Auto) 1.9 Baso % (Auto) 0.6 Neut # 3.2 Lymph # 1.6 [place] # 0.6 Eos # 0.1 Baso # 0.0 Sodium 139 139 Potassium 3.8 3.7 Chloride 106 105 Carbon Dioxide 21 L 21 L Anion Gap 16 17 BUN 7 6 L Creatinine 0.6 L 0.6 L Est GFR ( Amer) > 60 > 60 Est GFR (Non-Af Amer) > 60 > 60 Random Glucose 86 87 Calcium 8.1 L 7.5 L Total Bilirubin 0.6 AST 28 ALT 25 Alkaline Phosphatase 50 Total Protein 6.8 Albumin 3.3 L Globulin 3.4 Albumin/Globulin Ratio 1.0 Assessment & Plan (1) Acute urinary tract infection Status: Acute (2) Flank pain Status: Acute (3) Urolithiasis Status: Acute (4) IBS (irritable bowel syndrome) Status: Chronic
--- NOTE | 2016-07-25 20:58 | CP.PCM.PN ---
Subjective - Date & Time of Evaluation Date of Evaluation: 07/25/16 Time of Evaluation: 20:53 - Subjective Subjective: INFECTIOUS DISEASE PROGRESS NOTE IVIS PEACOCK MD, FACP 3T 369-A 07/25/2016 8:50 PM CHART REVIEWED PT EXAMINED CASE DISCUSSED CLINICALLY LOOKS BETTER BUT JUST HAD A TEMPERATURE SPIKE 0F A LITTLE OVER 100 AN HOUR AGO, WITH DIAPHORESIS. C/S ARE NEGATIVE BUT WAS ON LEVAQUIN BEFORE ADMISSION WITH BREAKTHROUGH TEMPS OF OVER 102 AT THE TIME. LUNGS CLEAR COR RR ABD SOFT RIGHT FLANK PAIN+ Objective - Vital Signs/Intake and Output Vital Signs (last 24 hours): Temp Pulse Resp BP Pulse Ox 98 F 88 20 143/91 H 99 07/25/16 18:26 07/25/16 16:00 07/25/16 16:00 07/25/16 16:00 07/25/16 16:00 - Medications Medications: Current Medications Acetaminophen (Tylenol 325mg Tab) 650 mg PO Q6 PRN PRN Reason: Temperature Last Admin: 07/25/16 17:26 Dose: 650 mg Heparin Sodium (Porcine) (Heparin) 5,000 units SC Q8 [facility] Last Admin: 07/25/16 14:18 Dose: 5,000 units Piperacillin Sod/Tazobactam Sod (Zosyn 3.375 Gm Iv Premix) 3.375 gm in 50 mls @ 100 mls/hr IVPB Q6H [facility] Last Admin: 07/25/16 20:46 Dose: 100 mls/hr Ondansetron HCl (Zofran Inj) 4 mg IVP Q6 PRN PRN Reason: Nausea/Vomiting Oxycodone/Acetaminophen (Percocet 5/325 Mg Tab) 1 tab PO Q4H PRN PRN Reason: Pain, severe (8-10) Stop: 07/28/16 11:51 Pneumococcal Polyvalent Vaccine (Pneumovax 23 Vaccine) 0.5 ml IM .ONCE ONE Stop: 07/26/16 10:01 Polyethylene Glycol (Miralax) 17 gm PO HS PRN PRN Reason: Constipation Last Admin: 07/25/16 20:47 Dose: 17 gm Potassium Chloride (K-Dur 20 Meq Er Tab) 20 meq PO DAILY [facility] Last Admin: 07/25/16 09:33 Dose: 20 meq - Labs Labs: 07/25/16 06:56 07/25/16 06:56 - Constitutional Appears: Non-toxic, No Acute Distress - Head Exam Head Exam: NORMAL INSPECTION - Eye Exam Eye Exam: Normal appearance - ENT Exam ENT Exam: Mucous Membranes Moist - Neck Exam Neck Exam: Full ROM - Respiratory Exam Respiratory Exam: Decreased Breath Sounds, Clear to Ausculation Bilateral, NORMAL BREATHING PATTERN - Cardiovascular Exam Cardiovascular Exam: REGULAR RHYTHM - GI/Abdominal Exam GI & Abdominal Exam: Soft, Normal Bowel Sounds. absent: Tenderness - Rectal Exam Rectal Exam: Deferred - Neurological Exam Neurological Exam: Alert, Awake - Psychiatric Exam Psychiatric exam: Normal Affect - Skin Skin Exam: Warm Assessment and Plan (1) Urolithiasis Status: Acute (2) Pyelonephritis Assessment & Plan: PLAN IS TO CONTINUE A FEW MORE DAYS OF IV SINCE THE PT FAILED PO LEVAQUINS. CHECK WITH DR GARZON CONCERNING UROLOGICAL PLAN. Status: Acute (3) Acute urinary tract infection Status: Acute (4) Fever Status: Acute
[2016-07-26] MEDS: Piperacill/Tazo 3.375gm in Dex 3.375 GM/50 ML BAG IVPB SCH ×4 (02:53→21:13)
[2016-07-26] MEDS: Oxycodone/Acetaminophen 5/325 mg Tab PO PRN ×2 (02:55→16:35)
--- NOTE | 2016-07-26 04:34 | CON ---
DATE: 07/26/2016 Urology consultation is requested by Dr. Miko Baeza. Urology consultation is filled by Dr. Marilia Rivera. REASON FOR CONSULTATION: Urinary tract infection. Urolithiasis. The patient is a 36-year-old female admitted with abdominal pain and fever and flank pain. The patient is in otherwise good health. The patient has history of urolithiasis in the past. She h as had no previous episodes of renal colic. She has not had surgery or passed stones. She was told there were stones in the past and has not had therapy for the stones. The patient now presents with a 2-3 day history of right flank pain. The patient had associated feve r for the past 1-2 days. The patient was seen in the Emergency Room on 07/22. She was found to have bilateral urolithiasis. The patient was started on antibiotic therapy for presumed urinary tract infection. However, the pat ient's symptoms have progressed. The patient has 102 fever at home. She had 102 fever in the Emergency Room last night. Outpatient evaluation revealed pyuria as well. The patient is otherwise well. She has had previous miscarriage. The patient lives with her . No history of hypertension, diabetes, pneumonia, asthma, tuberculosis. The patient is employed as a teacher. The patient does not smoke or drink. PHYSICAL EXAMINATION: GENERAL: The patient is well-developed, well-nourished, middle-aged female. The patient reports she is feeling better today. Maximum temperature of 102 degrees Fahrenheit: The patient is afebrile th is a.m. ABDOMEN: Soft, nondistended. There is mild right upper quadrant tenderness. Mild right CVA tendern ess. LABORATORY DATA: Reviewed. IMPRESSION: Urinary tract infection. Pyelonephritis. History of urolithiasis. RECOMMENDATIONS AND PLAN: Urine culture pending. Continue antibiotic therapy as per infectious dise ase application support consultant. Review x-rays including CT scan. I ordered abdominal x-rays as well. Further therapy to follow according to patient's clinical course. Possible need for lithotripsy. Of note, the patient had been on Levaquin orally prior to returning to the Emergency Room. Thank you for recommending the patient for urology consultation. Marilia Rivera MD cc: [id number] TT: 07/26/2016 04:33:50 Confirmation # [id number] Dictation # [id number]
[2016-07-26 07:41] LABS: BASO % 0.5 % (0.0-2.0); EOS # 0.1 K/uL (0.0-0.7); EOS % 1.2 % (0.0-4.0); HEMATOCRIT 32.1 % (34.0-47.0); LYMPH # 1.9 K/uL (1.0-4.3); LYMPH % 26.5 % (20.0-40.0); MEAN CELL VOLUME 81.9 fL (81.0-99.0); MEAN CORPUSCULAR HEMOGLOBIN 27.5 pg (27.0-31.0); MEAN CORPUSCULAR HGB CONC 33.6 g/dL (33.0-37.0); MONO # 0.7 K/uL (0.0-0.8); NRBC % 0.1 % (0.0-2.0); RED CELL DISTRIBUTION WIDTH 13.7 % (11.5-14.5); WHITE BLOOD COUNT 7.2 K/uL (4.8-10.8)
[2016-07-26 07:51] LABS: CHLORIDE 103 mmol/L (98-107); POTASSIUM 3.6 mmol/L (3.6-5.2); SODIUM 141 mmol/L (132-148)
[2016-07-26 07:54] LABS: BLOOD UREA NITROGEN 8 mg/dL (7-17); CARBON DIOXIDE 27 mmol/L (22-30); GFR AFRICAN-AMERICAN > 60
[2016-07-26 07:55] LABS: GLUCOSE,RANDOM 82 mg/dL (65-105); MAGNESIUM 2.4 mg/dL (1.6-2.3)
[2016-07-26] MEDS: Potassium Chloride 20 mEq ER Tab PO SCH (09:42)
[2016-07-26] MEDS ORDERED: Pneumococcal 23-Valent Vaccine IM ONE (10:00)
[2016-07-26 16:50] VITALS: RESP 20
--- NOTE | 2016-07-26 19:52 | CP.PCM.PN ---
Subjective - Date & Time of Evaluation Date of Evaluation: 07/26/16 Time of Evaluation: 19:48 - Subjective Subjective: feels better today on iv Abx Objective - Vital Signs/Intake and Output Vital Signs (last 24 hours): Temp Pulse Resp BP Pulse Ox 99.6 F 88 20 129/89 99 07/26/16 15:00 07/26/16 15:00 07/26/16 15:00 07/26/16 15:00 07/26/16 15:51 Intake and Output: 07/26/16 07/27/16 18:59 06:59 Intake Total 450 Balance 450 - Medications Medications: Current Medications Acetaminophen (Tylenol 325mg Tab) 650 mg PO Q6 PRN PRN Reason: Temperature Last Admin: 07/25/16 17:26 Dose: 650 mg Heparin Sodium (Porcine) (Heparin) 5,000 units SC Q8 [facility] Last Admin: 07/26/16 14:25 Dose: 5,000 units Piperacillin Sod/Tazobactam Sod (Zosyn 3.375 Gm Iv Premix) 3.375 gm in 50 mls @ 100 mls/hr IVPB Q6H [facility] Last Admin: 07/26/16 14:25 Dose: 100 mls/hr Ondansetron HCl (Zofran Inj) 4 mg IVP Q6 PRN PRN Reason: Nausea/Vomiting Oxycodone/Acetaminophen (Percocet 5/325 Mg Tab) 1 tab PO Q4H PRN PRN Reason: Pain, severe (8-10) Stop: 07/28/16 11:51 Last Admin: 07/26/16 16:35 Dose: 1 tab Polyethylene Glycol (Miralax) 17 gm PO HS PRN PRN Reason: Constipation Last Admin: 07/25/16 20:47 Dose: 17 gm Potassium Chloride (K-Dur 20 Meq Er Tab) 20 meq PO DAILY [facility] Last Admin: 07/26/16 09:42 Dose: 20 meq - Labs Labs: 07/26/16 07:26 07/26/16 07:26 - Constitutional Appears: No Acute Distress - Head Exam Head Exam: ATRAUMATIC, NORMOCEPHALIC - Eye Exam Eye Exam: Normal appearance - ENT Exam ENT Exam: Mucous Membranes Moist - Neck Exam Neck Exam: Normal Inspection - Respiratory Exam Respiratory Exam: Clear to Ausculation Bilateral - Cardiovascular Exam Cardiovascular Exam: +S1, +S2 - GI/Abdominal Exam GI & Abdominal Exam: Normal Bowel Sounds - Rectal Exam Rectal Exam: Deferred - Extremities Exam Extremities Exam: Full ROM - Back Exam Back Exam: CVA tenderness (R) - Neurological Exam Neurological Exam: Alert, Awake, Normal Gait, Oriented x3 - Psychiatric Exam Psychiatric exam: Normal Affect, Normal Mood - Skin Skin Exam: Intact Assessment and Plan (1) Acute urinary tract infection Status: Acute (2) Flank pain Status: Acute (3) Urolithiasis Status: Acute (4) IBS (irritable bowel syndrome) Status: Chronic
[2016-07-27] MEDS: Piperacill/Tazo 3.375gm in Dex 3.375 GM/50 ML BAG IVPB SCH ×3 (03:33→14:37)
[2016-07-27] MEDS: Potassium Chloride 20 mEq ER Tab PO SCH (09:23)
--- NOTE | 2016-07-27 11:24 | PCM.URO ---
Urology Progress Note - Objective Intake & Output: Intake & Output 07/26/16 07/27/16 07/27/16 18:59 06:59 18:59 Intake Total 450 300 300 Balance 450 300 300 Intake: Intake, IV Amount 100 50 50 Right Antecubital 100 50 50 Oral 350 250 250 Other: # Voids Urine, Voided 2 2 1 Vital Signs: Vital Signs - 24 hr 07/26/16 07/26/16 07/26/16 15:00 15:51 23:50 Temperature 99.6 F 98.7 F Pulse Rate 88 73 Respiratory 20 20 Rate Blood Pressure 129/89 124/79 O2 Sat by Pulse 98 99 96 Oximetry 07/27/16 07:57 Temperature 98.5 F Pulse Rate 83 Respiratory 20 Rate Blood Pressure 112/77 O2 Sat by Pulse 97 Oximetry
--- NOTE | 2016-07-27 12:54 | CT ---
PROCEDURE: CT Abdomen and Pelvis without Oral or IV contrast. HISTORY: stones COMPARISON: CT of the abdomen and pelvis without oral or IV contrast performed 07/22/16 TECHNIQUE: Contiguous axial images of the abdomen and pelvis. No oral or IV contrast administered. Coronal and Sagittal reformats generated and reviewed. Radiation dose: Total exam DLP = 297.83 mGy-cm. This CT exam was performed using one or more of the following dose reduction techniques: Automated exposure control, adjustment of the mA and/or kV according to patient size, and/or use of iterative reconstruction technique. FINDINGS: There is limited evaluation of the solid organs without the administration of IV contrast. LOWER THORAX: Right basilar atelectasis. There is no visible pleural effusion or pneumothorax. LIVER: Unremarkable unenhanced appearance. GALLBLADDER AND BILE DUCTS: Unremarkable unenhanced appearance. PANCREAS: Unremarkable unenhanced appearance. SPLEEN: Unremarkable unenhanced appearance. ADRENALS: Unremarkable unenhanced appearance. KIDNEYS AND URETERS: Bilateral nonobstructing nephrolithiasis. No hydronephrosis. BLADDER: Decompressed urinary bladder precludes adequate evaluation. REPRODUCTIVE: Uterus is present. APPENDIX: The appendix is not identified. No secondary signs of acute appendicitis. BOWEL: The stomach is nondistended. Lack of oral contrast limits evaluation for bowel pathology. The bowel loops appear within normal limits of caliber without evidence of intestinal obstruction. Moderate to severe constipation. PERITONEUM: No significant free fluid. No definite free air. LYMPH NODES: No bulky lymphadenopathy identified. VASCULATURE: No aortic aneurysm. BONES: No acute osseous abnormality is detected. OTHER FINDINGS: None. IMPRESSION: Moderate to severe diffuse constipation. Nonobstructing bilateral nephrolithiasis. Right basilar atelectasis.
--- NOTE | 2016-07-27 14:02 | PN ---
DATE: 07/27/2016 The reason for admission was pyelonephritis and stones. The patient is currently resting comfortably, is actually sitting in a chair with her cellphone. Reports that she is feeling better since her initial admission when she was admitted with a UTI, pyel onephritis and also stone disease. See the plans listed below. PAST MEDICAL AND SURGICAL HISTORY: As listed. She has the IBS. No history of an [place] or CVA. She is under the care of Dr. Miko Baeza and Dr. Marilia Rivera. REVIEW OF SYSTEMS: Listed above. No changes. PHYSICAL EXAMINATION: GENERAL: She is a well-developed female, no apparent distress. VITAL SIGNS: Noted. The physical exam seems to be unremarkable. Pelvic exam is deferred for now. Labs, x-rays, etc. are all in the chart. DIAGNOSES: Urolithiasis, pyelonephritis. PLAN: 1. We are going to put the patient in for a CT scan of the abdomen and pelvis without and with IV co ntrast and oral contrast to evaluate for medullary sponge kidney. 2. We are also going to discuss options for treatment for the patient. At this point, the patient is apparently scheduled for discharge on oral antibiotics. She will follow up with us in the office. She will see Dr. Marilia Rivera. From a urology standpoint, she is cleared, but will require followup for the stones. I did discuss w ith her various recommendations regarding hydration, regarding the IBS, etc., but further plans will follow. Wong Rivera MD cc: [phone] TT: 07/27/2016 14:01:20 Confirmation # [id number] Dictation # [id number]
[2016-07-27 16:20] VITALS: BP 130/86; PULSE 79; TEMP 98.6; O2SAT 98
--- NOTE | 2016-07-27 16:47 | CP.PCM.PN ---
Subjective - Date & Time of Evaluation Date of Evaluation: 07/27/16 Time of Evaluation: 14:00 - Subjective Subjective: Pt seen today , states feels better, denies any fever, chills, abdominal pain, N /V a febrile for 48 hrs Urine culture- negative blood culture - negative x [address] Rivera cleared pateint for discharge home and f/u with Dr. Rivera office for further work up As per Dr. Baeza, Pt can be discharged home today Objective - Vital Signs/Intake and Output Vital Signs (last 24 hours): Temp Pulse Resp BP Pulse Ox 98.6 F 79 20 130/86 98 07/27/16 16:00 07/27/16 16:00 07/27/16 16:00 07/27/16 16:00 07/27/16 16:00 Intake and Output: 07/27/16 07/27/16 06:59 18:59 Intake Total 300 980 Balance 300 980 - Medications Medications: Current Medications Acetaminophen (Tylenol 325mg Tab) 650 mg PO Q6 PRN PRN Reason: Temperature Last Admin: 07/25/16 17:26 Dose: 650 mg Heparin Sodium (Porcine) (Heparin) 5,000 units SC Q8 [facility] Last Admin: 07/27/16 13:09 Dose: 5,000 units Piperacillin Sod/Tazobactam Sod (Zosyn 3.375 Gm Iv Premix) 3.375 gm in 50 mls @ 100 mls/hr IVPB Q6H [facility] Last Admin: 07/27/16 14:37 Dose: 100 mls/hr Ondansetron HCl (Zofran Inj) 4 mg IVP Q6 PRN PRN Reason: Nausea/Vomiting Oxycodone/Acetaminophen (Percocet 5/325 Mg Tab) 1 tab PO Q4H PRN PRN Reason: Pain, severe (8-10) Stop: 07/28/16 11:51 Last Admin: 07/26/16 16:35 Dose: 1 tab Polyethylene Glycol (Miralax) 17 gm PO HS PRN PRN Reason: Constipation Last Admin: 07/25/16 20:47 Dose: 17 gm Potassium Chloride (K-Dur 20 Meq Er Tab) 20 meq PO DAILY [facility] Last Admin: 07/27/16 09:23 Dose: 20 meq - Labs Labs: 07/26/16 07:26 07/26/16 07:26
--- NOTE | 2016-07-27 19:59 | CP.PCM.PN ---
Subjective - Date & Time of Evaluation Date of Evaluation: 07/27/16 Time of Evaluation: 19:55 - Subjective Subjective: INFECTIOUS DISEASE PROGRESS NOTE IVIS PEACOCK MD, FACP 3T 369-A 07/27/2016 CHART REVIEWED PT EXAMINED CASE DISCUSSED CLINICALLY THIS PT HAS RESOLVED HER FEVERS AND SPASMS SINCE RECEIVING ADEQUATE HYDRATION AND IV ZOSYN. STILL WITH RIGHT SIDED FLANK DISCOMFORT AND IS AWARE THAT SHE HAS BILATERAL STONES. TO FOLLOW WITH DR AL GARZON. C/S WERE NOT DIAGNOSTIC BUT OF COURSE SHE ALREADY RECEIVED IV ANTIBIOTICS AND PO LEVAQUIN BEFORE BEING ADMITTED. WILL ATTEMPT TO CONTINUE AN ANTIBIOTIC KEFLEX 500 PO TID FOR 7 DAYS PENDING HER FURTHER EVALUATION WITH DR GARZON ET AL. Objective - Vital Signs/Intake and Output Vital Signs (last 24 hours): Temp Pulse Resp BP Pulse Ox 98.6 F 79 20 130/86 98 07/27/16 16:00 07/27/16 16:00 07/27/16 16:00 07/27/16 16:00 07/27/16 16:00 Intake and Output: 07/27/16 07/28/16 18:59 06:59 Intake Total 980 Balance 980 - Medications Medications: Current Medications Acetaminophen (Tylenol 325mg Tab) 650 mg PO Q6 PRN PRN Reason: Temperature Last Admin: 07/25/16 17:26 Dose: 650 mg Heparin Sodium (Porcine) (Heparin) 5,000 units SC Q8 [facility] Last Admin: 07/27/16 13:09 Dose: 5,000 units Piperacillin Sod/Tazobactam Sod (Zosyn 3.375 Gm Iv Premix) 3.375 gm in 50 mls @ 100 mls/hr IVPB Q6H [facility] Last Admin: 07/27/16 14:37 Dose: 100 mls/hr Ondansetron HCl (Zofran Inj) 4 mg IVP Q6 PRN PRN Reason: Nausea/Vomiting Oxycodone/Acetaminophen (Percocet 5/325 Mg Tab) 1 tab PO Q4H PRN PRN Reason: Pain, severe (8-10) Stop: 07/28/16 11:51 Last Admin: 07/26/16 16:35 Dose: 1 tab Polyethylene Glycol (Miralax) 17 gm PO HS PRN PRN Reason: Constipation Last Admin: 07/25/16 20:47 Dose: 17 gm Potassium Chloride (K-Dur 20 Meq Er Tab) 20 meq PO DAILY [facility] Last Admin: 07/27/16 09:23 Dose: 20 meq - Labs Labs: 07/26/16 07:26 07/26/16 07:26 - Constitutional Appears: Non-toxic - Head Exam Head Exam: ATRAUMATIC - Eye Exam Eye Exam: Normal appearance - ENT Exam ENT Exam: Mucous Membranes Moist - Respiratory Exam Respiratory Exam: Decreased Breath Sounds - Cardiovascular Exam Cardiovascular Exam: REGULAR RHYTHM - GI/Abdominal Exam GI & Abdominal Exam: Soft - Rectal Exam Rectal Exam: Deferred - Neurological Exam Neurological Exam: Alert, Awake - Psychiatric Exam Psychiatric exam: Anxious - Skin Skin Exam: Warm Assessment and Plan (1) Urolithiasis Status: Acute (2) Pyelonephritis Status: Acute (3) Acute urinary tract infection Status: Acute (4) Fever Status: Acute
--- NOTE | 2016-07-28 00:05 | PCM.URO ---
Urology Progress Note - General General: No Complaints, Tolerating Diet - Subjective Abdominal Pain: No Flank Pain: Yes (MUCH LESS) Nausea: No Voiding Well: Yes Dysuria: No Hematuria: No Fever & Chills: No - Objective Lab Studies: Reviewed Intake & Output: Intake & Output 07/27/16 07/27/16 07/28/16 06:59 18:59 06:59 Intake Total 300 980 Balance 300 980 Intake: Intake, IV Amount 50 250 Right Antecubital 50 250 Oral 250 730 Other: # Voids Urine, Voided 2 2 # Bowel Movements 0 Vital Signs: Vital Signs - 24 hr 07/27/16 07/27/16 07:57 16:00 Temperature 98.5 F 98.6 F Pulse Rate 83 79 Respiratory 20 20 Rate Blood Pressure 112/77 130/86 O2 Sat by Pulse 97 98 Oximetry Imaging Studies: Reviewed - Physical Exam Abdominal Exam: Soft, Non-Tender, Non-Distended Back: CVA Tenderness (MILD R CVA TENDERNESS) Urine Color: Clear, Yellow - Plan Ambulation - Out of Bed: Yes See Orders: Yes Additional Information: CT SCAN +/- IV CONTRAST. RE STONES, PYELONEPHRITIS, AND ABNORMAL KALPANA. DISCUSSED W PT. CONTINUE ANTIBIOTIC RX PER ID - Date & Time of Note Date: 07/26/16 Time: 14:30
--- NOTE | 2016-08-03 18:40 | CP.PCM.DIS ---
Provider - Provider Date of Admission: 07/24/16 17:28 Attending physician: Miko Baeza MD Time Spent in preparation of Discharge (in minutes): 25 Diagnosis - Discharge Diagnosis (1) Acute urinary tract infection Status: Acute (2) Flank pain Status: Acute (3) Urolithiasis Status: Acute (4) IBS (irritable bowel syndrome) Status: Chronic Hospital Course - Lab Results Lab Results: Micro Results 07/24/16 Unknown Urine Urine Culture - Final No Growth (<1,000 CFU/ML) Most Recent Lab Values WBC 7.2 K/uL (4.8-10.8) 07/26/16 07:26 RBC 3.91 Mil/uL (3.80-5.20) 07/26/16 07:26 Hgb 10.8 g/dL (11.0-16.0) L 07/26/16 07:26 Hct 32.1 % (34.0-47.0) L 07/26/16 07:26 MCV 81.9 fL (81.0-99.0) 07/26/16 07:26 MCH 27.5 pg (27.0-31.0) 07/26/16 07:26 MCHC 33.6 g/dL (33.0-37.0) 07/26/16 07:26 RDW 13.7 % (11.5-14.5) 07/26/16 07:26 Plt Count 355 K/uL (130-400) 07/26/16 07:26 MPV 8.0 fL (7.2-11.7) 07/26/16 07:26 Neut % (Auto) 61.8 % (50.0-75.0) 07/26/16 07:26 Lymph % (Auto) 26.5 % (20.0-40.0) 07/26/16 07:26 Darke % (Auto) 10.0 % (0.0-10.0) 07/26/16 07:26 Eos % (Auto) 1.2 % (0.0-4.0) 07/26/16 07:26 Baso % (Auto) 0.5 % (0.0-2.0) 07/26/16 07:26 Neut # 4.4 K/uL (1.8-7.0) 07/26/16 07:26 Lymph # 1.9 K/uL (1.0-4.3) 07/26/16 07:26 Darke # 0.7 K/uL (0.0-0.8) 07/26/16 07:26 Eos # 0.1 K/uL (0.0-0.7) 07/26/16 07:26 Baso # 0.0 K/uL (0.0-0.2) 07/26/16 07:26 ESR 74 mm/hr (0-20) H 07/26/16 07:26 pO2 25 mm/Hg (30-55) L 07/24/16 15:45 VBG pH 7.45 (7.32-7.43) H 07/24/16 15:45 VBG pCO2 36 mmHg (40-60) L 07/24/16 15:45 VBG HCO3 24.6 mmol/L 07/24/16 15:45 VBG Total CO2 26.1 mmol/L (22-28) 07/24/16 15:45 VBG O2 Sat (Calc) 53.0 % (40-65) 07/24/16 15:45 VBG Base Excess 1.3 mmol/L (0.0-2.0) 07/24/16 15:45 VBG Potassium 2.9 mmol/L (3.6-5.2) L 07/24/16 15:45 Sodium 139.0 mmol/l (132-148) 07/24/16 15:45 Chloride 107.0 mmol/L (98-107) 07/24/16 15:45 Glucose 83 mg/dl (65-105) 07/24/16 15:45 Lactate 1.1 mmol/L (0.7-2.1) 07/24/16 15:45 Sodium 141 mmol/L (132-148) 07/26/16 07:26 Potassium 3.6 mmol/L (3.6-5.2) 07/26/16 07:26 Chloride 103 mmol/L (98-107) 07/26/16 07:26 Carbon Dioxide 27 mmol/L (22-30) 07/26/16 07:26 Anion Gap 15 (10-20) 07/26/16 07:26 BUN 8 mg/dL (7-17) 07/26/16 07:26 Creatinine 0.7 MG/DL (0.7-1.2) 07/26/16 07:26 Est GFR ( Amer) > 60 07/26/16 07:26 Est GFR (Non-Af Amer) > 60 07/26/16 07:26 Random Glucose 82 mg/dL (65-105) 07/26/16 07:26 Calcium 9.0 mg/dl (8.6-10.4) 07/26/16 07:26 Magnesium 2.4 mg/dL (1.6-2.3) H 07/26/16 07:26 Total Bilirubin 0.6 mg/dL (0.2-1.3) 07/25/16 06:56 AST 28 U/L (14-36) 07/25/16 06:56 ALT 25 U/L (9-52) 07/25/16 06:56 Alkaline Phosphatase 50 U/L (38-126) 07/25/16 06:56 Total Protein 6.8 g/dL (6.3-8.3) 07/25/16 06:56 Albumin 3.3 g/dL (3.5-5.0) L 07/25/16 06:56 Globulin 3.4 gm/dL (2.2-3.9) 07/25/16 06:56 Albumin/Globulin Ratio 1.0 (1.0-2.1) 07/25/16 06:56 Venous Blood Potassium 2.9 mmol/L (3.6-5.2) L 07/24/16 15:45 Urine Color Yellow (YELLOW) 07/24/16 15:58 Urine Clarity Hazy (Clear) 07/24/16 15:58 Urine pH 7.0 (5.0-8.0) 07/24/16 15:58 Ur Specific Folcroft 1.014 (1.003-1.030) 07/24/16 15:58 Urine Protein Negative mg/dL (NEGATIVE) 07/24/16 15:58 Urine Glucose (UA) Normal mg/dL (Normal) 07/24/16 15:58 Urine Ketones Negative mg/dL (NEGATIVE) 07/24/16 15:58 Urine Blood Negative (NEGATIVE) 07/24/16 15:58 Urine Nitrate Negative (NEGATIVE) 07/24/16 15:58 Urine Bilirubin Negative (NEGATIVE) 07/24/16 15:58 Urine Urobilinogen Normal mg/dL (0.2-1.0) 07/24/16 15:58 Ur Leukocyte Esterase Neg Frannie/uL (Negative) 07/24/16 15:58 Urine WBC (Auto) 11 /hpf (0-5) H 07/24/16 15:58 Urine RBC (Auto) 4 /hpf (0-3) H 07/24/16 15:58 Ur Squamous Epith Cells 14 /hpf (0-5) H 07/24/16 15:58 Urine Bacteria Rare (<OCC) 07/24/16 15:58 Urine HCG, Qual Negative (NEGATIVE) 07/24/16 15:58 Discharge Exam - Head Exam Head Exam: ATRAUMATIC - Eye Exam Eye Exam: Normal appearance Pupil Exam: NORMAL ACCOMODATION - ENT Exam ENT Exam: Mucous Membranes Moist - Respiratory Exam Respiratory Exam: NORMAL BREATHING PATTERN - Cardiovascular Exam Cardiovascular Exam: +S1, +S2 - GI/Abdominal Exam GI & Abdominal Exam: Normal Bowel Sounds - Rectal Exam Rectal Exam: Deferred - Neurological Exam Neurological exam: Alert, Oriented x3 - Psychiatric Exam Psychiatric exam: Normal Affect, Normal Mood - Skin Skin Exam: Intact Discharge Plan - Follow Up Plan Condition: STABLE Disposition: HOME/ ROUTINE Patient education suggested?: Yes Instructions: Cephalexin (By mouth), Kidney Stones (DC), Urinary Tract Infection in Women (DC), Fever in Adults (GEN), Acute Pyelonephritis (DC), Acute Abdominal Pain (DC), Acute Abdominal Pain (GEN), Urinary Tract Infection in Men (DC), Dysuria (GEN) Additional Instructions: Please f/u with PMD in 1 week F/u with Dr. Rivera office in 1 week - [facility] for appointment Antibiotics as per Dr. Boudreaux resume all home medications Referrals: Lubna Boudreaux MD [Staff Provider] - Miko Baeza MD [Staff Provider] - Stephan Brady MD, PhD [Staff Provider] - Marilia Rivera MD [Staff Provider] -
== END 2016-07-27 20:41 | disposition home or self-care (01) | DRG 690 ==
LOC: C.ER 14:25 → C.9E 17:28 → C.3T 18:21
PROVIDERS: ADMIT Internal Medicine Pulmonary Disease; ATTEND Internal Medicine Pulmonary Disease
DX: N13.6 Pyonephrosis (principal); K50.90 Crohn's disease, unspecified, without complications; I10 Essential (primary) hypertension; N20.2 Calculus of kidney with calculus of ureter; F41.9 Anxiety disorder, unspecified; K58.9 Irritable bowel syndrome, unspecified

== ENCOUNTER 2017-08-01 10:03 | Emergency (ER) | payer BC, MEDICAID ==
[2017-08-01 10:03] VITALS: BMI 23.1
[2017-08-01 10:11] VITALS: O2SAT 97
--- NOTE | 2017-08-01 12:13 | C.PDOC ---
History Of Present Illness 37 y/o female with a history of hemorrhoids presents to the ED for a sudden onset rectal bleed. Patient states she had a large BM this morning when she noticed bright red bleeding. She is complaining of pain in her rectal area. Denies any abdominal pain, vomiting, fever, dysuria, or vaginal bleeding. PMD: Caitlyn Chahal Time Seen by Provider: 08/01/17 10:16 Chief Complaint (Nursing): GI Problem History Per: Patient History/Exam Limitations: no limitations Onset/Duration Of Symptoms: Hrs Current Symptoms Are (Timing): Still Present Quality Of Discomfort: "Pain" Associated Symptoms: Rectal Bleeding. denies: Vomiting Recent travel outside of the [place]: No Past Medical History Reviewed: Historical Data, Nursing Documentation, Vital Signs Vital Signs: Last Vital Signs Temp 98.5 F 08/01/17 12:25 Pulse 68 08/01/17 12:25 Resp 18 08/01/17 12:25 BP 130/90 08/01/17 12:25 Pulse Ox 97 08/01/17 12:25 - Medical History PMH: Crohn's Disease, Depression, HTN Surgical History: No Surg Hx Family History: States: Unknown Family Hx - Social History Hx Tobacco Use: No Hx Alcohol Use: No Hx Substance Use: No - Immunization History Hx Tetanus Toxoid Vaccination: No Hx Influenza Vaccination: No Hx Pneumococcal Vaccination: No Review Of Systems Except As Marked, All Systems Reviewed And Found Negative. Constitutional: Negative for: Fever Gastrointestinal: Positive for: Rectal Pain, Other (rectal bleeding). Negative for: Vomiting, Abdominal Pain Genitourinary: Negative for: Dysuria, Vaginal Bleeding Physical Exam - Physical Exam Appears: Well, No Acute Distress Skin: Normal Color, Warm, Dry Head: Atraumatic, Normacephalic Eye(s): bilateral: Normal Inspection, PERRL, EOMI Nose: Normal Throat: Normal Neck: Normal, Supple Cardiovascular: Rhythm Regular, No Murmur Respiratory: Normal Breath Sounds, No Decreased Breath Sounds Gastrointestinal/Abdominal: Normal Exam, Soft, No Tenderness, Other (wound to the umbilicus) Back: Normal Inspection, No CVA Tenderness, No Vertebral Tenderness Extremity: Normal ROM, No Pedal Edema, No Deformity Neurological/Psych: Oriented x3 ED Course And Treatment O2 Sat by Pulse Oximetry: 97 (RA) Pulse Ox Interpretation: Normal Medical Decision Making Medical Decision Making: Time: 10:07 Impression: Hemorrhoids Initial Plan: * Tylenol 650 mg PO * Motrin 400 mg PO Upon rectal exam large hemorrhoid found with no bleeding. Scribe Attestation: Documented by Doreen Galvin acting as a scribe for Caity Pineda PA-C. MD Scribe Attestation: All medical record entries made by the Scribe were at my direction and personally dictated by me. I have reviewed the chart and agree that the record accurately reflects my personal performance of the history, physical exam, medical decision making, and the department course for this patient. I have also personally directed, reviewed, and agree with the discharge instructions and disposition. Disposition - Disposition Referrals: Sofi Forde MD [Staff Provider] - Disposition: HOME/ ROUTINE Disposition Time: 11:30 Condition: GOOD Additional Instructions: Follow up with the medical doctor within 1-2 days. Return if worsened. Prescriptions: Docusate [Colace] 100 mg PO DAILY #30 cap Hydrocortisone 2.5% (Rectal) [Anusol-Hc] 1 appl RC BID #1 tube Ibuprofen [Motrin] 1 tab PO TID PRN #30 tab PRN Reason: Pain Instructions: Hemorrhoids Forms: [employer] ([place]inean) - Clinical Impression Clinical Impression: Hemorrhoid, Rectal bleeding
[2017-08-01 12:25] VITALS: BP 130/90; PULSE 68; RESP 18; TEMP 98.5
== END 2017-08-01 12:35 | disposition home or self-care (01) ==
LOC: C.ER 10:03
DX: K64.9 Unspecified hemorrhoids (principal); K62.5 Hemorrhage of anus and rectum
CPT/HCPCS: 99284; G0328